=== PATIENT | male | born 1945 | race Caucasian/White ===

== ENCOUNTER 2018-08-04 08:59 | Inpatient (IN) | payer OTHER, MEDICARE ==
[2018-08-04] MEDS ORDERED: SODIUM CHLORIDE 0.9% 1,000 ML IV STA ×2 (09:44)
--- NOTE | 2018-08-04 09:47 | ED ---
Weakness HPI - General Chief complaint: Weakness Stated complaint: blood in urine Time Seen by Provider: 08/04/18 09:23 Source: patient, family, RN notes reviewed Mode of arrival: wheelchair Limitations: no limitations - History of Present Illness Initial comments: This is a 72-year-old male who is brought in by family for complaints of weakness and difficulty standing hematuria decreased oral intake. The patient currently is been fighting with hematuria for the past year he was noted to have about a 30 pound weight loss last couple weeks she's had decreased oral intake decreased fluid intake not eating extremely weak no overt cough no overt fevers chills sweats nausea vomiting or diarrhea. MD Complaint: generalized weakness - Related Data Home Medications Medication Instructions Recorded Confirmed Acetaminophen Tab [Tylenol Tab] 500 mg PO BID PRN 08/04/18 08/04/18 Atenolol/Chlorthalidone 1 tab PO DAILY 08/04/18 08/04/18 [Atenolol-Chlorthalidone 50-25] Finasteride [Proscar] 5 mg PO DAILY 08/04/18 08/04/18 Methocarbamol [Robaxin] 750 mg PO QID PRN 08/04/18 08/04/18 Naproxen 500 mg PO BID PRN 08/04/18 08/04/18 Oxybutynin Chloride [Ditropan] 5 mg PO BID 08/04/18 08/04/18 Tamsulosin [Flomax] 0.8 mg PO DAILY 08/04/18 08/04/18 Allergies Allergy/AdvReac Type Severity Reaction Status Date / Time No Known Allergies Allergy Verified 08/04/18 10:07 Review of Systems ROS Statement: Those systems with pertinent positive or pertinent negative responses have been documented in the HPI. ROS Other: All systems not noted in ROS Statement are negative. Past Medical History Past Medical History: Hypertension, Prostate Disorder History of Any Multi-Drug Resistant Organisms: None Reported Past Surgical History: Orthopedic Surgery Additional Past Surgical History / Comment(s): B knee replacement Past Psychological History: No Psychological Hx Reported Smoking Status: Former smoker Past Alcohol Use History: Daily Past Drug Use History: None Reported General Exam - General Exam Comments Initial Comments: This a well-developed asthenic appearing male Limitations: no limitations General appearance: alert, lethargic Head exam: Present: atraumatic, normocephalic, normal inspection Eye exam: Present: normal appearance, PERRL, EOMI. Absent: scleral icterus, conjunctival injection, periorbital swelling ENT exam: Present: mucous membranes dry Neck exam: Present: normal inspection. Absent: tenderness, meningismus, lymphadenopathy Respiratory exam: Present: decreased breath sounds. Absent: respiratory distress, wheezes, rales, rhonchi, stridor Cardiovascular Exam: Present: regular rate, normal rhythm, normal heart sounds. Absent: systolic murmur, diastolic murmur, rubs, gallop, clicks GI/Abdominal exam: Present: soft, tenderness (Tenderness palpation over the lower abdomen no guarding rebound), normal bowel sounds. Absent: distended, guarding, rebound, rigid Rectal exam: Present: deferred Extremities exam: Present: normal inspection, full ROM, normal capillary refill. Absent: tenderness, pedal edema, joint swelling, calf tenderness Back exam: Present: normal inspection Neurological exam: Present: alert, oriented X3, CN II-XII intact Psychiatric exam: Present: normal affect, normal mood Skin exam: Present: warm, dry, intact, normal color. Absent: rash Course Vital Signs 08/04/18 08/04/18 08/04/18 09:01 10:43 12:24 Temperature 97.9 F Pulse Rate 62 63 63 Respiratory 18 18 18 Rate Blood Pressure 148/77 154/111 129/82 O2 Sat by Pulse 96 96 95 Oximetry - Reevaluation(s) Reevaluation #1: 08/04/18 09:47 A Hallman catheter was placed there is evidence of hematuria. EKG Findings - EKG Results: EKG: interpreted by ERMD (EKG shows normal sinus rhythm a 61 MD interval 174 QRS 104 QT since QTC 432/434 nonspecific T-wave configuration) Medical Decision Making - Medical Decision Making I did discuss findings with the patient family members as well as with Dr. Moss who did come the emergency department see the patient patient will be admitted for inpatient treatment - Lab Data Result diagrams: 08/04/18 09:52 08/04/18 09:52 Lab Results 08/04/18 08/04/18 08/04/18 Range/Units 09:52 09:52 09:52 WBC 8.6 (3.8-10.6) k/uL RBC 3.11 L (4.30-5.90) m/uL Hgb 9.7 L (13.0-17.5) gm/dL Hct 28.5 L (39.0-53.0) % MCV 91.6 (80.0-100.0) fL MCH 31.2 (25.0-35.0) pg MCHC 34.0 (31.0-37.0) g/dL RDW 14.4 (11.5-15.5) % Plt Count 296 (150-450) k/uL Neutrophils % 74 % Lymphocytes % 20 % Monocytes % 5 % Eosinophils % 0 % Basophils % 0 % Neutrophils # 6.4 (1.3-7.7) k/uL Lymphocytes # 1.7 (1.0-4.8) k/uL Monocytes # 0.4 (0-1.0) k/uL Eosinophils # 0.0 (0-0.7) k/uL Basophils # 0.0 (0-0.2) k/uL Sodium 139 (137-145) mmol/L Potassium 3.4 L (3.5-5.1) mmol/L Chloride 95 L (98-107) mmol/L Carbon Dioxide 29 (22-30) mmol/L Anion Gap 15 mmol/L BUN 94 H (9-20) mg/dL Creatinine 2.45 H (0.66-1.25) mg/dL Est GFR (CKD-EPI)AfAm 30 (>60 ml/min/1.73 sqM) Est GFR (CKD-EPI)NonAf 26 (>60 ml/min/1.73 sqM) Glucose 113 H (74-99) mg/dL Plasma Lactic Acid Adrien (0.7-2.0) mmol/L Calcium (8.4-10.2) mg/dL Magnesium 1.9 (1.6-2.3) mg/dL Total Bilirubin 1.0 (0.2-1.3) mg/dL AST 35 (17-59) U/L ALT 21 (21-72) U/L Alkaline Phosphatase 106 (38-126) U/L Total Creatine Kinase 45 L (55-170) U/L CK-MB (CK-2) 0.6 (0.0-2.4) ng/mL CK-MB (CK-2) Rel Index 1.3 Troponin I 0.018 (0.000-0.034) ng/mL Total Protein 13.2 H (6.3-8.2) g/dL Albumin 4.1 (3.5-5.0) g/dL Amylase 74 (30-110) U/L Lipase 163 (23-300) U/L Urine Color Urine Appearance (Clear) Urine pH (5.0-8.0) Ur Specific [place] (1.001-1.035) Urine Protein (Negative) Urine Glucose (UA) (Negative) Urine Ketones (Negative) Urine Blood (Negative) Urine Nitrite (Negative) Urine Bilirubin (Negative) Urine Urobilinogen (<2.0) mg/dL Ur Leukocyte Esterase (Negative) Urine RBC (0-5) /hpf Urine WBC (0-5) /hpf Urine WBC Clumps (None) /hpf Urine Bacteria (None) /hpf Hyaline Casts (0-2) /lpf Urine Mucus (None) /hpf 08/04/18 08/04/18 Range/Units 09:52 09:52 WBC (3.8-10.6) k/uL RBC (4.30-5.90) m/uL Hgb (13.0-17.5) gm/dL Hct (39.0-53.0) % MCV (80.0-100.0) fL MCH (25.0-35.0) pg MCHC (31.0-37.0) g/dL RDW (11.5-15.5) % Plt Count (150-450) k/uL Neutrophils % % Lymphocytes % % Monocytes % % Eosinophils % % Basophils % % Neutrophils # (1.3-7.7) k/uL Lymphocytes # (1.0-4.8) k/uL Monocytes # (0-1.0) k/uL Eosinophils # (0-0.7) k/uL Basophils # (0-0.2) k/uL Sodium (137-145) mmol/L Potassium (3.5-5.1) mmol/L Chloride (98-107) mmol/L Carbon Dioxide (22-30) mmol/L Anion Gap mmol/L BUN (9-20) mg/dL Creatinine (0.66-1.25) mg/dL Est GFR (CKD-EPI)AfAm (>60 ml/min/1.73 sqM) Est GFR (CKD-EPI)NonAf (>60 ml/min/1.73 sqM) Glucose (74-99) mg/dL Plasma Lactic Acid Adrien 1.5 (0.7-2.0) mmol/L Calcium (8.4-10.2) mg/dL Magnesium (1.6-2.3) mg/dL Total Bilirubin (0.2-1.3) mg/dL AST (17-59) U/L ALT (21-72) U/L Alkaline Phosphatase (38-126) U/L Total Creatine Kinase (55-170) U/L CK-MB (CK-2) (0.0-2.4) ng/mL CK-MB (CK-2) Rel Index Troponin I (0.000-0.034) ng/mL Total Protein (6.3-8.2) g/dL Albumin (3.5-5.0) g/dL Amylase (30-110) U/L Lipase (23-300) U/L Urine Color Red Urine Appearance Turbid (Clear) Urine pH 5.5 (5.0-8.0) Ur Specific [place] 1.017 (1.001-1.035) Urine Protein 2+ H (Negative) Urine Glucose (UA) Negative (Negative) Urine Ketones Negative (Negative) Urine Blood Large H (Negative) Urine Nitrite Negative (Negative) Urine Bilirubin Negative (Negative) Urine Urobilinogen <2.0 (<2.0) mg/dL Ur Leukocyte Esterase Large H (Negative) Urine RBC >182 H (0-5) /hpf Urine WBC >182 H (0-5) /hpf Urine WBC Clumps Many H (None) /hpf Urine Bacteria Rare H (None) /hpf Hyaline Casts 77 H (0-2) /lpf Urine Mucus Few H (None) /hpf - Radiology Data Radiology results: report reviewed (I did review the imaging and report no acute findings.), image reviewed Disposition Clinical Impression: Urinary tract infection, Dehydration, Renal insufficiency syndrome, Anemia Disposition: ADMITTED IP TO THIS HOSP Condition: Stable Referrals: [facility],Clinic [Primary Care Provider] - 1-2 days
[2018-08-04 10:31] LABS: Basophils % (A) 0 %; Eosinophils % (A) 0 %; HCT 28.5 % (39.0-53.0); HGB 9.7 gm/dL (13.0-17.5); Lymphocytes # (A) 1.7 k/uL (1.0-4.8); Lymphocytes % (A) 20 %; MCH 31.2 pg (25.0-35.0); MCV 91.6 fL (80.0-100.0); Monocytes # (A) 0.4 k/uL (0-1.0); Monocytes % (A) 5 %; Neutrophils # (A) 6.4 k/uL (1.3-7.7); Neutrophils % (A) 74 %; Platelet Count 296 k/uL (150-450); RBC 3.11 m/uL (4.30-5.90); RDW 14.4 % (11.5-15.5); WBC 8.6 k/uL (3.8-10.6)
[2018-08-04 10:44] LABS: Appearance,Urine Turbid (Clear); Bacteria,Urine Rare /hpf; Bilirubin,Urine Negative (Negative); Blood,Urine Large (Negative); Color,Urine Red; Glucose,Urine (UA) Negative (Negative); Hyaline Casts,Urine 77 /lpf (0-2); Ketones,Urine Negative (Negative); Leukocyte Esterase,Urine Large (Negative); Mucus,Urine Few /hpf; Nitrite,Urine Negative (Negative); PH, Urine 5.5 (5.0-8.0); Protein,Urine 2+ (Negative); RBC,Urine >182 /hpf (0-5); Urobilinogen,Urine <2.0 mg/dL (<2.0); WBC,Urine >182 /hpf (0-5)
[2018-08-04 10:53] LABS: Albumin 4.1 g/dL (3.5-5.0); Magnesium 1.9 mg/dL (1.6-2.3); Potassium 3.4 mmol/L (3.5-5.1)
[2018-08-04 10:54] LABS: Specific Gravity,Urine 1.017 (1.001-1.035)
--- NOTE | 2018-08-04 11:01 | XR ---
EXAMINATION TYPE: XR chest 2V DATE OF EXAM: 08/04/2018 COMPARISON: 08/20/2013 INDICATION: Cough TECHNIQUE: Frontal and lateral views of the chest are obtained. FINDINGS: The heart size is normal. The pulmonary vasculature is normal. The lungs are clear. IMPRESSION: 1. No acute pulmonary process.
--- NOTE | 2018-08-04 11:02 | XR ---
EXAMINATION TYPE: XR KUB DATE OF EXAM: 08/04/2018 COMPARISON: None INDICATION: Not eating or drinking TECHNIQUE: Single view abdomen frontal projection supine view FINDINGS: There is a normal bowel gas pattern. Some nonspecific small bowel gas is in the right midabdomen. Psoas margins are normal. No organomegaly is present. IMPRESSION: 1. Nonspecific abdomen.
[2018-08-04 11:14] LABS: Total Protein 13.2 g/dL (6.3-8.2)
[2018-08-04 11:20] LABS: Creatine Kinase MB 0.6 ng/mL (0.0-2.4); Troponin I 0.018 ng/mL (0.000-0.034)
[2018-08-04] MEDS ORDERED: NALOXONE 0.4 MG/ML 1 ML VIAL IV PRN (13:52)
[2018-08-04] MEDS ORDERED: METHOCARBAMOL 750 MG TAB PO PRN (13:53)
[2018-08-04] MEDS ORDERED: NAPROXEN 250 MG TAB PO PRN (13:53)
--- NOTE | 2018-08-04 14:50 | P.HPIM ---
History of Present Illness 72-year-old pleasant gentleman came in with complaints of fever weakness has been going on for last 2 days along with hematuria patient does have significant prostate problems does use straight catheterization he is unable to do it lately follows up with urology as an outpatient. Patient has been quite weak and able to ambulate found to have renal failure with creatinine of 2.45 do not have his baseline creatinine patient is on some nephrotoxic medications including naproxen which will be held patient will be started on IV fluids, patient was also complaining of pain in the right groin area right suprapubic area and across the bilateral lower abdomen does not have any posterior vertebral angle tenderness. We will obtain ultrasound of the kidney urinary bladder. We will Allsop in urine random sodium urine random creatinine and urine eosinophils, holding off on naproxen and chlorthalidone. Patient was also having hematuria Review of Systems REVIEW OF SYSTEMS: CONSTITUTIONAL: As mentioned in HPI HEENT: No recent visual problems or hearing problems. Denied any sore throat. CARDIOVASCULAR: No chest pain, orthopnea, PND, no palpitations, no syncope. PULMONARY: No shortness of breath, no cough, no hemoptysis. GASTROINTESTINAL: No diarrhea, no vomiting, . Normoactive bowel sounds. NEUROLOGICAL: No headaches, no weakness, no numbness. HEMATOLOGICAL: Denies any bleeding or petechiae. GENITOURINARY: As mentioned in HPI. MUSCULOSKELETAL/RHEUMATOLOGICAL: Denies any joint pain, swelling, or any muscle pain. ENDOCRINE: Denies any polyuria or polydipsia. The rest of the 14-point review of systems is negative. Past Medical History Past Medical History: Hypertension, Prostate Disorder Additional Past Medical History / Comment(s): Hematuria, UTI, BPH, chronic back and bilateral leg pain History of Any Multi-Drug Resistant Organisms: None Reported Past Surgical History: Orthopedic Surgery Additional Past Surgical History / Comment(s): Bilateral knee replacements, colonoscopy Past Anesthesia/Blood Transfusion Reactions: No Reported Reaction Past Psychological History: No Psychological Hx Reported Additional Psychological History / Comment(s): Pt resides with his spouse. He uses a cane and lately a walker to ambulate. He drives. Smoking Status: Former smoker Past Alcohol Use History: Daily Additional Past Alcohol Use History / Comment(s): Pt started smoking in 1965 and quit in 2013. He states he drinks approximately 4 shots of whiskey in a mixer per day. He states he last drank 3-4 days ago. Past Drug Use History: None Reported - Past Family History Father Family Medical History: Respiratory Disorder Additional Family Medical History / Comment(s): Pt states his father smoked and had home oxygen but does not know exact lung disease. He states his father at the age of 69yrs. Mother Family Medical History: Cancer Additional Family Medical History / Comment(s): Mother of pancreatic cancer at the age of 72 yrs. She was a non-drinker. Medications and Allergies Home Medications Medication Instructions Recorded Confirmed Type Acetaminophen Tab [Tylenol Tab] 500 mg PO BID PRN 08/04/18 08/04/18 History Atenolol/Chlorthalidone 1 tab PO DAILY 08/04/18 08/04/18 History [Atenolol-Chlorthalidone 50-25] Finasteride [Proscar] 5 mg PO DAILY 08/04/18 08/04/18 History Methocarbamol [Robaxin] 750 mg PO QID PRN 08/04/18 08/04/18 History Naproxen 500 mg PO BID PRN 08/04/18 08/04/18 History Oxybutynin Chloride [Ditropan] 5 mg PO BID 08/04/18 08/04/18 History Tamsulosin [Flomax] 0.8 mg PO DAILY 08/04/18 08/04/18 History Allergies Allergy/AdvReac Type Severity Reaction Status Date / Time No Known Allergies Allergy Verified 08/04/18 10:07 Physical Exam Vitals: Vital Signs Temp Pulse Resp BP Pulse Ox 08/04/18 12:24 63 18 129/82 95 08/04/18 10:43 63 18 154/111 96 08/04/18 09:01 97.9 F 62 18 148/77 96 Intake and Output 08/03/18 08/04/18 08/04/18 22:59 06:59 14:59 Other: Voiding Method Indwelling Catheter Weight 79.379 kg Results CBC & Chem 7: 08/04/18 09:52 08/04/18 09:52 Labs: Abnormal Lab Results - Last 24 Hours (Table) 08/04/18 08/04/18 08/04/18 Range/Units 09:52 09:52 09:52 RBC 3.11 L (4.30-5.90) m/uL Hgb 9.7 L (13.0-17.5) gm/dL Hct 28.5 L (39.0-53.0) % Potassium 3.4 L (3.5-5.1) mmol/L Chloride 95 L (98-107) mmol/L BUN 94 H (9-20) mg/dL Creatinine 2.45 H (0.66-1.25) mg/dL Glucose 113 H (74-99) mg/dL Total Creatine Kinase 45 L (55-170) U/L Total Protein 13.2 H (6.3-8.2) g/dL Urine Protein (Negative) Urine Blood (Negative) Ur Leukocyte Esterase (Negative) Urine RBC (0-5) /hpf Urine WBC (0-5) /hpf Urine WBC Clumps (None) /hpf Urine Bacteria (None) /hpf Hyaline Casts (0-2) /lpf Urine Mucus (None) /hpf 08/04/18 Range/Units 09:52 RBC (4.30-5.90) m/uL Hgb (13.0-17.5) gm/dL Hct (39.0-53.0) % Potassium (3.5-5.1) mmol/L Chloride (98-107) mmol/L BUN (9-20) mg/dL Creatinine (0.66-1.25) mg/dL Glucose (74-99) mg/dL Total Creatine Kinase (55-170) U/L Total Protein (6.3-8.2) g/dL Urine Protein 2+ H (Negative) Urine Blood Large H (Negative) Ur Leukocyte Esterase Large H (Negative) Urine RBC >182 H (0-5) /hpf Urine WBC >182 H (0-5) /hpf Urine WBC Clumps Many H (None) /hpf Urine Bacteria Rare H (None) /hpf Hyaline Casts 77 H (0-2) /lpf Urine Mucus Few H (None) /hpf Thrombosis Risk Factor Assmnt - Choose All That Apply Any of the Below Risk Factors Present?: Yes Other Risk Factors: Yes Each Risk Factor Represents 2 Points: Age 61-74 years Other congenital or acquired thrombophilia - If yes, enter type in comment: No Thrombosis Risk Factor Assessment Total Risk Factor Score: 2 Thrombosis Risk Factor Assessment Level: Low Risk Assessment and Plan Plan: Possible urinary tract infection, a cystitis: Patient was started on Rocephin which will be continued IV fluids will be continued. Urine cultures will be obtained. UA significant abdominal with highly elevated white blood cell count leukocyte esterase and nitrate positive. -Hematuria: Probably secondary to cystitis -Possible acute renal failure: Naproxen will be discontinued, diuretic therapy will be discontinued. Kidney ultrasound will be obtained to rule out any obstructive uropathy. Patient had a Hallman catheter that was placed. Acute renal failure can be from acute tubular necrosis nonoliguric along with prerenal azotemia. Order urine random sodium urine random creatinine urine eosinophils Repeats basic metabolic profile tomorrow. -Hypokalemia potassium will be supplemented -Proteinuria follow-up as an outpatient -Benign prostatic hypertrophy
--- NOTE | 2018-08-04 15:39 | US ---
EXAMINATION TYPE: US kidneys/renal and bladder DATE OF EXAM: 08/04/2018 COMPARISON: NONE CLINICAL HISTORY: YARI. EXAM MEASUREMENTS: Right Kidney: 12.5 x 6.4 x 8.2 cm Left Kidney: 11.9 x 6.7 x 7.6 cm Right Kidney: moderate amount of hydronephrosis Left Kidney: No hydronephrosis or masses seen Bladder: reyes catheter Bilateral Jets seen: no Urinary bladder is decompressed the catheter. Wall thickening cannot be excluded. IMPRESSION: Moderate right hydronephrosis.
[2018-08-04] MEDS: SODIUM CHLORIDE 0.9% 1,000 ML IV SCH (15:41)
[2018-08-04] MEDS: OXYBUTYNIN CHLORIDE 5 MG TAB PO SCH (21:33)
[2018-08-05] MEDS: SODIUM CHLORIDE 0.9% 1,000 ML IV SCH ×3 (04:00→21:55)
[2018-08-05] MEDS: ATENOLOL 50 MG TAB PO SCH (08:11)
[2018-08-05] MEDS: TAMSULOSIN 0.4 MG CAP.ER.24H PO SCH (08:11)
[2018-08-05] MEDS: FINASTERIDE 5 MG TAB PO SCH (08:11)
[2018-08-05] MEDS: OXYBUTYNIN CHLORIDE 5 MG TAB PO SCH ×2 (08:12→20:12)
[2018-08-05] MEDS ORDERED: CHLORTHALIDONE 25 MG TAB PO SCH (09:00)
[2018-08-05 09:52] LABS: HCT 24.7 % (39.0-53.0); HGB 8.5 gm/dL (13.0-17.5); MCH 31.4 pg (25.0-35.0); MCHC 34.2 g/dL (31.0-37.0); MCV 91.8 fL (80.0-100.0); Mean Platelet Volume 7.9; Platelet Count 243 k/uL (150-450); RBC 2.69 m/uL (4.30-5.90); RDW 14.4 % (11.5-15.5); WBC 8.1 k/uL (3.8-10.6)
[2018-08-05 10:33] LABS: Calcium 13.9 mg/dL (8.4-10.2); Potassium 2.6 mmol/L (3.5-5.1)
[2018-08-05] MEDS ORDERED: Potassium Replacement Protocol 1 EACH MISC MISCELLANE PRN (11:20)
[2018-08-05] MEDS ORDERED: Magnesium Replacement Protocol 1 EACH MISC MISCELLANE PRN (11:21)
[2018-08-05] MEDS ORDERED: POTASSIUM CHLORIDE 20 MEQ in WATER FOR INJECTION 1 100ML.BAG IVPB STA (11:33)
[2018-08-05 13:06] VITALS: BMI 25.1
--- NOTE | 2018-08-05 13:43 | P.PN ---
Subjective Progress Note Date: 08/05/18 Progress note being dictated for Dr. Moss Interval history:72-year-old pleasant gentleman came in with complaints of fever weakness has been going on for last 2 days along with hematuria patient does have significant prostate problems does use straight catheterization he is unable to do it lately follows up with urology as an outpatient. Patient has been quite weak and able to ambulate found to have renal failure with creatinine of 2.45 do not have his baseline creatinine patient is on some nephrotoxic medications including naproxen which will be held patient will be started on IV fluids, patient was also complaining of pain in the right groin area right suprapubic area and across the bilateral lower abdomen does not have any posterior vertebral angle tenderness. We will obtain ultrasound of the kidney urinary bladder. We will Allsop in urine random sodium urine random creatinine and urine eosinophils, holding off on naproxen and chlorthalidone. Patient was also having hematuria 08/05/2018 poor appetite, consumed 10% of breakfast, creatinine 1.91. Renal ultrasound reporting moderate right hydronephrosis, possible wall thickening Hyperal hypokalemic, potassium 2.6, receiving supplements. Evaluated by PT/OT. Limited ambulation with walker. Post ambulation complained of significant exertion and bilateral hip pain. Elevated calcium, 13.9. states patient has lost 30 pounds in 3 weeks. Afebrile, normal WBC. Objective - Vital Signs Vital signs: Vital Signs Temp 98.2 F 08/05/18 06:02 Pulse 66 08/05/18 06:02 Resp 17 08/05/18 06:02 BP 135/69 08/05/18 06:02 Pulse Ox 94 L 08/05/18 06:02 Intake & Output 08/04/18 08/05/18 08/05/18 18:59 06:59 18:59 Intake Total 100 Output Total 900 850 Balance -900 -850 100 Weight 79.379 kg 79.379 kg Intake: Oral 100 Output: Urine 900 850 Other: Voiding Method Indwelling Catheter Indwelling Catheter - Exam PHYSICAL EXAM: VITAL SIGNS: As above GENERAL: Lying in bed, weak and tired appearing, no acute distress HEENT: Conjunctivae normal. eyes normal. Oral mucosa dry NECK: No JVD. No thyroid enlargement. No LNs CARDIOVASCULAR: S1, S2 muffled. No murmur RESPIRATION: Breath sounds diminished in the bases. No rhonchi or crackles. ABDOMEN: Soft, nontender . No guarding. no masses palpable. Bowel sounds heard. LEGS: No edema. no swelling PSYCHIATRY: Alert and oriented -3, mood and affect normal. NERVOUS SYSTEM: Cranial N 2-12 grossly normal. Moves all 4 limbs. Diffuse weakness No focal deficits. Joints: No active swelling. No inflammation. . - Labs CBC & Chem 7: 08/05/18 09:18 08/05/18 09:18 Labs: Abnormal Lab Results - Last 24 Hours (Table) 08/05/18 08/05/18 Range/Units :18 09:18 RBC 2.69 L (4.30-5.90) m/uL Hgb 8.5 L (13.0-17.5) gm/dL Hct 24.7 L (39.0-53.0) % Potassium 2.6 L* (3.5-5.1) mmol/L BUN 62 H (9-20) mg/dL Creatinine 1.91 H (0.66-1.25) mg/dL Glucose 113 H (74-99) mg/dL Calcium 13.9 H* (8.4-10.2) mg/dL Microbiology - Last 24 Hours (Table) 08/04/18 09:52 Blood Culture - Preliminary Blood No Growth after 24 hours Assessment and Plan Assessment: Possible urinary tract infection, a cystitis: Urine culture pendning, UA significant abdominal with highly elevated white blood cell count leukocyte esterase and nitrate positive. -Hematuria: Probably secondary to cystitis -Possible acute renal failure: Naproxen will be discontinued, diuretics discontinued. Acute renal failure can be from acute tubular necrosis nonoliguric along with prerenal azotemia. -Hypokalemia potassium will be supplemented -Proteinuria follow-up as an outpatient -Benign prostatic hypertrophy -Hypercalcemia, workup in progress, PTH and vitamin D5 levels ordered. Possible malignancy given significant weight loss of 30 pounds in 3 weeks. -Moderate right hydronephrosis -Bilateral hip pain, workup in progress. Plan: Continue current medication regime ,monitoring and symptomatic treatment. Maintain IV antibiotics. Potassium supplementation in progress with repeat electrolyte check at 1600. Given hypercalcemia, PTH and vitamin D 5 levels ordered, IV fluids increased. Evaluated by physical therapy with subacute rehab recommended at discharge. Urology consult in place with recommendations pending. Complains of bilateral hip pain, x-ray ordered. Close monitoring of electrolytes, renal function with repeat labs ordered for a.m. prognosis guarded given multiple complex medical issues. The impression and plan of care has been dictated as directed. : I performed a history and examination of this patient, discussed the same with the dictator. I agree with the dictator's note ,documented as a scribe. Any additional findings or plans will be noted.
[2018-08-05] MEDS: POTASSIUM CHLORIDE 20 MEQ in WATER FOR INJECTION 1 100ML.BAG IVPB SCH ×2 (13:52→17:13)
[2018-08-05] MEDS: ACETAMINOPHEN TAB 325 MG TAB PO PRN (13:52)
[2018-08-05] MEDS: CALCITONIN INJ 200 UNIT/ML (MDV) VIAL SQ SCH (15:32)
--- NOTE | 2018-08-05 16:04 | XR ---
EXAMINATION TYPE: XR Hip Bilateral and AP pelvis DATE OF EXAM: 08/05/2018 COMPARISON: NONE HISTORY: Pain TECHNIQUE: A single AP view of the pelvis is obtained. Two views of the bilateral hip are obtained. FINDINGS: There is no acute fracture/dislocation evident in the pelvis. There is arthropathy of the hip joints bilaterally with vascular calcifications in the pelvis and degenerative changes spine. There are lucent lesions involving both femur and pelvic bones. Correlate for history of malignancy o r multiple myeloma. No acute fracture or dislocation. IMPRESSION: 1. There are multiple lucent lesions the visualized osseous structures. Correlate for history of mult iple myeloma or metastases. 2. Bilateral hip arthropathy.
--- NOTE | 2018-08-05 20:27 | P.GSCN ---
History of Present Illness Consult date: 08/05/18 Reason for Consult: Cystitis History of present illness: The patient is a 72-year-old male admitted on 08/04 through the emergency room for evaluation of increasing weakness and intermittent gross hematuria. At the time of his admission his BUN was 94 and his creatinine was 2.45. A catheter was inserted but unfortunately the amount of urine which drained was never recorded. He was presumed to have a urinary tract infection and was started on ceftriaxone. His BUN and creatinine has fallen to 62/1.91 today. His urine culture is no growth. The patient was noted to have a calcium of 13.9. His total protein was 13.2 and his PTH is 4.5. KUB and films of his pelvis and proximal femurs show multiple lytic lesions. Renal ultrasound on 08/04 showed moderate right hydronephrosis. The patient has a history of intermittent gross hematuria which dates back at least 1-1/2 years. According to his he was evaluated by a urologist in [place] 1 year ago. She thinks cystoscopy was performed and the patient had evidence of incomplete bladder emptying. He was given catheters for intermittent catheterization but apparently never did this on a regular basis and tried them again recently but was unable to pass the catheter into his bladder. The patient's says that his urine flow is usually just a trickle and he usually voids multiple times every hour during the day and at least every hour at night. He has periodic urge incontinence. She describes him being treated for urinary tract infections earlier in the year but is unclear if urine cultures were ever done. The patient has been treated with finasteride 5 mg daily and oxybutynin 5 mg twice a day. He could not recall if he had had previous imaging of his kidneys but I presume that when he was seen by a urologist one year ago due to hematuria he probably had either a renal ultrasound or CT scan of the abdomen. He Says he has been seen at the [facility] clinic on a regular basis. Review of Systems - Constitutional Reports fatigue, Reports weakness, Denies fever - Cardiovascular Denies chest pain, Denies shortness of breath - Respiratory Denies wheezing - Gastrointestinal Denies abdominal pain, Denies constipation - Genitourinary Reports as per HPI, Reports discharge - Musculoskeletal Reports muscle weakness Past Medical History Past Medical History: Hypertension, Prostate Disorder Additional Past Medical History / Comment(s): Hematuria, UTI, BPH, chronic back and bilateral leg pain History of Any Multi-Drug Resistant Organisms: None Reported Past Surgical History: Orthopedic Surgery Additional Past Surgical History / Comment(s): Bilateral knee replacements, colonoscopy Past Anesthesia/Blood Transfusion Reactions: No Reported Reaction Past Psychological History: No Psychological Hx Reported Additional Psychological History / Comment(s): Pt resides with his spouse. He uses a cane and lately a walker to ambulate. He drives. Smoking Status: Former smoker Past Alcohol Use History: Daily Additional Past Alcohol Use History / Comment(s): Pt started smoking in 1965 and quit in 2013. He states he drinks approximately 4 shots of whiskey in a mixer per day. He states he last drank 3-4 days ago. Past Drug Use History: None Reported - Past Family History Father Family Medical History: Respiratory Disorder Additional Family Medical History / Comment(s): Pt states his father smoked and had home oxygen but does not know exact lung disease. He states his father at the age of 69yrs. Mother Family Medical History: Cancer Additional Family Medical History / Comment(s): Mother of pancreatic cancer at the age of 72 yrs. She was a non-drinker. Medications and Allergies Home Medications Medication Instructions Recorded Confirmed Type Acetaminophen Tab [Tylenol Tab] 500 mg PO BID PRN 08/04/18 08/04/18 History Atenolol/Chlorthalidone 1 tab PO DAILY 08/04/18 08/04/18 History [Atenolol-Chlorthalidone 50-25] Finasteride [Proscar] 5 mg PO DAILY 08/04/18 08/04/18 History Methocarbamol [Robaxin] 750 mg PO QID PRN 08/04/18 08/04/18 History Naproxen 500 mg PO BID PRN 08/04/18 08/04/18 History Oxybutynin Chloride [Ditropan] 5 mg PO BID 08/04/18 08/04/18 History Tamsulosin [Flomax] 0.8 mg PO DAILY 08/04/18 08/04/18 History Allergies Allergy/AdvReac Type Severity Reaction Status Date / Time No Known Allergies Allergy Verified 08/04/18 10:07 Surgical - Exam Vital Signs Temp Pulse Resp BP Pulse Ox 97.9 F 62 18 148/77 96 08/04/18 09:01 08/04/18 09:01 08/04/18 09:01 08/04/18 09:01 08/04/18 09:01 - General well developed, chronically ill - Neck no masses, no lymphadectomy - Respiratory normal respiratory effort - Abdomen Abdomen: soft, no organomegaly - Genitourinary normal penis with no external lesions, testicles non-tender, other (Urine draining from the catheter is clear) Results - Labs 08/05/18 09:18 08/05/18 16:48 Abnormal Lab Results - Last 24 Hours (Table) 08/05/18 08/05/18 08/05/18 Range/Units : 09: 09:18 RBC 2.69 L (4.30-5.90) m/uL Hgb 8.5 L (13.0-17.5) gm/dL Hct 24.7 L (39.0-53.0) % Potassium 2.6 L* (3.5-5.1) mmol/L BUN 62 H (9-20) mg/dL Creatinine 1.91 H (0.66-1.25) mg/dL Glucose 113 H (74-99) mg/dL Calcium 13.9 H* (8.4-10.2) mg/dL Vitamin D 25-Hydroxy (30.0-100.0) ng/mL PTH Intact 4.5 L (14.0-72.0) pg/mL 08/05/18 08/05/18 Range/Units :18 16:48 RBC (4.30-5.90) m/uL Hgb (13.0-17.5) gm/dL Hct (39.0-53.0) % Potassium 3.3 L (3.5-5.1) mmol/L BUN (9-20) mg/dL Creatinine (0.66-1.25) mg/dL Glucose (74-99) mg/dL Calcium (8.4-10.2) mg/dL Vitamin D 25-Hydroxy 16.2 L (30.0-100.0) ng/mL PTH Intact (14.0-72.0) pg/mL Microbiology - Last 24 Hours (Table) 08/05/18 14:00 Urine Culture - Preliminary Urine,Clean Catch 08/04/18 09:52 Blood Culture - Preliminary Blood No Growth after 24 hours Diabetes panel 08/05/18 08/05/18 Range/Units 09:18 16:48 Sodium 138 (137-145) mmol/L Potassium 2.6 L* 3.3 L (3.5-5.1) mmol/L Chloride 98 (98-107) mmol/L Carbon Dioxide 28 (22-30) mmol/L BUN 62 H (9-20) mg/dL Creatinine 1.91 H (0.66-1.25) mg/dL Glucose 113 H (74-99) mg/dL Calcium 13.9 H* (8.4-10.2) mg/dL Calcium panel 08/05/18 Range/Units 09:18 Calcium 13.9 H* (8.4-10.2) mg/dL Pituitary panel 08/05/18 08/05/18 Range/Units 09: 16:48 Sodium 138 (137-145) mmol/L Potassium 2.6 L* 3.3 L (3.5-5.1) mmol/L Chloride 98 (98-107) mmol/L Carbon Dioxide 28 (22-30) mmol/L BUN 62 H (9-20) mg/dL Creatinine 1.91 H (0.66-1.25) mg/dL Glucose 113 H (74-99) mg/dL Calcium 13.9 H* (8.4-10.2) mg/dL Adrenal panel 08/05/18 08/05/18 Range/Units 09:18 16:48 Sodium 138 (137-145) mmol/L Potassium 2.6 L* 3.3 L (3.5-5.1) mmol/L Chloride 98 (98-107) mmol/L Carbon Dioxide 28 (22-30) mmol/L BUN 62 H (9-20) mg/dL Creatinine 1.91 H (0.66-1.25) mg/dL Glucose 113 H (74-99) mg/dL Calcium 13.9 H* (8.4-10.2) mg/dL Assessment and Plan Assessment: The patient's history is consistent with incomplete bladder emptying secondary to prostatic enlargement which dates back at least 1 year. It is likely that the patient has been in urinary retention recently which caused the right hydronephrosis and his elevated BUN and creatinine. His BUN and creatinine have fallen with catheter drainage and I would suggest leaving the catheter in for a longer period. The patient's hematuria is probably on the basis of underlying BPH as presumably he underwent cystoscopy and imaging of his kidneys one year ago. His urine culture showing no growth and in view of this his antibiotics will be discontinued. I spoke with the patient's and she will try to obtain records from the urologist but had seen him previously. His elevated calcium, suppressed PTH and elevated total protein coupled with the lytic lesions noted on KUB and films of the femurs and pelvis suggest multiple myeloma. Dr. Goncalves will be seeing the patient for further evaluation of this. (1) Urinary retention with incomplete bladder emptying Current Visit: Yes Status: Acute Code(s): R33.9 - RETENTION OF URINE, UNSPECIFIED SNOMED Code(s): 964829404
[2018-08-06] MEDS ORDERED: Potassium Replacement Protocol 1 EACH MISC MISCELLANE PRN (00:01)
[2018-08-06] MEDS: POTASSIUM CHLORIDE ER 20 MEQ TAB.ER PO SCH ×6 (01:01→21:56)
[2018-08-06] MEDS: SODIUM CHLORIDE 0.9% 1,000 ML IV SCH ×3 (08:14→21:56)
[2018-08-06] MEDS: FINASTERIDE 5 MG TAB PO SCH (08:16)
[2018-08-06] MEDS: TAMSULOSIN 0.4 MG CAP.ER.24H PO SCH (08:16)
[2018-08-06] MEDS: OXYBUTYNIN CHLORIDE 5 MG TAB PO SCH (08:16)
[2018-08-06] MEDS: ATENOLOL 50 MG TAB PO SCH (08:16)
[2018-08-06] MEDS: CALCITONIN INJ 200 UNIT/ML (MDV) VIAL SQ SCH (08:53)
[2018-08-06] MEDS: ACETAMINOPHEN TAB 325 MG TAB PO PRN (08:56)
--- NOTE | 2018-08-06 09:57 | P.CONS ---
History of Present Illness - Reason for Consult Consult date: 08/06/18 bone lucency, anemia Requesting physician: Flakita June - Chief Complaint weakness, hematuria - History of Present Illness Mr. Quesada is a very pleasant male admitted with hematuria and progressive weakness. Pt states a history of "prostate problems" withhis PSA being followed by [facility], his last labs were drawn last month and he was told everything was good. Pt denies a personal Hx of cancer, blood problems, he is positive for 30 lb wt. loss in the last few months, the week he has elt "foggy" but denies confusion, has been moving slower and it has been taking him longer to to do his normal activities, new pain in the right side /hips and the right leg is weak, denies fevers, sweats, falls, difficulty swallowing, nausea, chest pain, cough, QIAN, abd pain or bloating, acute changes in bowel habits, he states the hematuria has stopped since the catheter was inserted. Review of Systems 14 point ROS as stated in HPI Past Medical History Past Medical History: Hypertension, Prostate Disorder Additional Past Medical History / Comment(s): Hematuria, UTI, BPH, chronic back and bilateral leg pain History of Any Multi-Drug Resistant Organisms: None Reported Past Surgical History: Orthopedic Surgery Additional Past Surgical History / Comment(s): Bilateral knee replacements, colonoscopy Past Anesthesia/Blood Transfusion Reactions: No Reported Reaction Past Psychological History: No Psychological Hx Reported Additional Psychological History / Comment(s): Pt resides with his spouse. He uses a cane and lately a walker to ambulate. He drives. Smoking Status: Former smoker Past Alcohol Use History: Daily Additional Past Alcohol Use History / Comment(s): Pt started smoking in 1965 and quit in 2013. He states he drinks approximately 4 shots of whiskey in a mixer per day. He states he last drank 3-4 days ago. Past Drug Use History: None Reported - Past Family History Father Family Medical History: Respiratory Disorder Additional Family Medical History / Comment(s): Pt states his father smoked and had home oxygen but does not know exact lung disease. He states his father at the age of 69yrs. Mother Family Medical History: Cancer Additional Family Medical History / Comment(s): Mother of pancreatic cancer at the age of 72 yrs. She was a non-drinker. Medications and Allergies Home Medications Medication Instructions Recorded Confirmed Type Acetaminophen Tab [Tylenol Tab] 500 mg PO BID PRN 08/04/18 08/04/18 History Atenolol/Chlorthalidone 1 tab PO DAILY 08/04/18 08/04/18 History [Atenolol-Chlorthalidone 50-25] Finasteride [Proscar] 5 mg PO DAILY 08/04/18 08/04/18 History Methocarbamol [Robaxin] 750 mg PO QID PRN 08/04/18 08/04/18 History Naproxen 500 mg PO BID PRN 08/04/18 08/04/18 History Oxybutynin Chloride [Ditropan] 5 mg PO BID 08/04/18 08/04/18 History Tamsulosin [Flomax] 0.8 mg PO DAILY 08/04/18 08/04/18 History Allergies Allergy/AdvReac Type Severity Reaction Status Date / Time No Known Allergies Allergy Verified 08/04/18 10:07 Physical Exam Vitals: Vital Signs Temp Pulse Resp BP Pulse Ox 08/06/18 05:56 98.2 F 64 17 125/67 96 08/05/18 23:00 98.1 F 63 17 141/68 94 L 08/05/18 16:28 60 16 08/05/18 14:02 98.6 F 60 16 129/72 93 L Intake and Output 08/05/18 08/06/18 08/06/18 22:59 06:59 14:59 Intake Total 60 Output Total 1300 650 Balance -1240 -650 Intake: Oral 60 Output: Urine 1300 650 Other: Voiding Method Indwelling Catheter Weight 79.379 kg - Constitutional General appearance: average body habitus, cooperative, no acute distress - EENT Eyes: anicteric sclerae, poor dentition ENT: normal oropharynx - Neck Neck: no lymphadenopathy - Respiratory Respiratory: bilateral: CTA - Cardiovascular Rhythm: regular Heart sounds: normal: S1, S2 leg Peripheral Edema: bilateral: None - Gastrointestinal General gastrointestinal: no absent bowel sounds, no decreased bowel sounds, no distended, no hepatomegaly, no hyperactive bowel sounds, normal bowel sounds, no organomegaly, no rigid, no scaphoid, soft, no splenomegaly, no tenderness, no umbilical hernia, no ventral hernia - Integumentary Integumentary: decreased turgor - Neurologic Neurologic: CNII-XII intact Results CBC & Chem 7: 08/05/18 09:18 08/06/18 11:28 Labs: Abnormal Lab Results - Last 24 Hours (Table) 08/05/18 08/05/18 08/05/18 Range/Units 18 09:18 09:18 RBC 2.69 L (4.30-5.90) m/uL Hgb 8.5 L (13.0-17.5) gm/dL Hct 24.7 L (39.0-53.0) % Potassium 2.6 L* (3.5-5.1) mmol/L BUN 62 H (9-20) mg/dL Creatinine 1.91 H (0.66-1.25) mg/dL Glucose 113 H (74-99) mg/dL Calcium 13.9 H* (8.4-10.2) mg/dL Vitamin D 25-Hydroxy (30.0-100.0) ng/mL PTH Intact 4.5 L (14.0-72.0) pg/mL 08/05/18 08/05/18 08/05/18 Range/Units :18 16:48 23:22 RBC (4.30-5.90) m/uL Hgb (13.0-17.5) gm/dL Hct (39.0-53.0) % Potassium 3.3 L 3.1 L (3.5-5.1) mmol/L BUN (9-20) mg/dL Creatinine (0.66-1.25) mg/dL Glucose (74-99) mg/dL Calcium (8.4-10.2) mg/dL Vitamin D 25-Hydroxy 16.2 L (30.0-100.0) ng/mL PTH Intact (14.0-72.0) pg/mL Microbiology - Last 24 Hours (Table) 08/05/18 14:00 Urine Culture - Preliminary Urine,Clean Catch 08/04/18 09:52 Blood Culture - Preliminary Blood No Growth after 24 hours Comments: x ray reports reviewed Assessment and Plan (1) Acute renal failure Current Visit: Yes Status: Acute Priority: High Code(s): N17.9 - ACUTE KIDNEY FAILURE, UNSPECIFIED SNOMED Code(s): 99444805 (2) Hypercalcemia Current Visit: Yes Status: Acute Priority: High Code(s): E83.52 - HYPERCALCEMIA SNOMED Code(s): 82260575 (3) Abnormal x-ray of bone Current Visit: Yes Status: Acute Priority: High Code(s): R93.7 - ABNORMAL FINDINGS ON DIAGNOSTIC IMAGING OF PRT MS SYS SNOMED Code(s): 320419724 (4) Anemia Current Visit: Yes Status: Acute Priority: High Code(s): D64.9 - ANEMIA, UNSPECIFIED SNOMED Code(s): 501595443 Plan: The multiple symptoms described above are concerning for myeloma (meets CRAB criteria to the letter!). Hypercalcemia being treated with calcitonin, will increased dose and give small dose of aredia. This therapy is also for the bone findings. NM bone scan ordered to eval entire skeleton Anemia and myeloma work up ordered. Have requested PSA too. Gentle hydration for renal failure. Concerns for marrow related malignancy were discussed with the pt and that there is more work up needed. Pt agreeable to further work up. Attests: I have performed H&P and developed impression and plan of care of patient, discussed with dictator. I agree with dictated note, documented as a scribe.
[2018-08-06 12:09] LABS: Reticulocyte % 2.3 % (0.5-2.0)
[2018-08-06 12:15] LABS: Magnesium 1.4 mg/dL (1.6-2.3); Potassium 3.5 mmol/L (3.5-5.1)
[2018-08-06] MEDS ORDERED: Magnesium Replacement Protocol 1 EACH MISC MISCELLANE PRN (12:45)
[2018-08-06 13:18] LABS: Calcium 11.9 mg/dL (8.4-10.2)
[2018-08-06] MEDS: MAGNESIUM SULFATE-D5W PMX 1 GM in DEXTROSE/WATER 1 100ML.BAG IVPB SCH ×3 (13:29→16:09)
--- NOTE | 2018-08-06 14:04 | P.PN ---
Progress Note - Text Progress Note Date: 08/06/18 The patient's urine remains relatively clear. He remains weak and slightly lethargic. BUN/Cr is improved at 40/1.5. Calcium is lower at 11.9. I am trying to get records from the urologist that saw him one year ago as he probably had cystoscopy and imaging of his kidneys at that time. His catheter will remain in place until his renal function has stabilized.
--- NOTE | 2018-08-06 15:46 | P.PN ---
Subjective 72-year-old pleasant gentleman came in with complaints of fever weakness has been going on for last 2 days along with hematuria patient does have significant prostate problems does use straight catheterization he is unable to do it lately follows up with urology as an outpatient. Patient has been quite weak and able to ambulate found to have renal failure with creatinine of 2.45 do not have his baseline creatinine patient is on some nephrotoxic medications including naproxen which will be held patient will be started on IV fluids, patient was also complaining of pain in the right groin area right suprapubic area and across the bilateral lower abdomen does not have any posterior vertebral angle tenderness. We will obtain ultrasound of the kidney urinary bladder. We will [place] in urine random sodium urine random creatinine and urine eosinophils, holding off on naproxen and chlorthalidone. Patient was also having hematuria 08/05/2018 poor appetite, consumed 10% of breakfast, creatinine 1.91. Renal ultrasound reporting moderate right hydronephrosis, possible wall thickening Hyperal hypokalemic, potassium 2.6, receiving supplements. Evaluated by PT/OT. Limited ambulation with walker. Post ambulation complained of significant exertion and bilateral hip pain. Elevated calcium, 13.9. states patient has lost 30 pounds in 3 weeks. Afebrile, normal WBC. 08/06/2018 Patient is feeling much better today patient to be evaluated for multiple myeloma considering his a lytic lesions and the KUB x-rays along with hypercalcemia which is improving with calcitonin patient has low PTH and low 25 hydroxy vitamin D. Improving calcium with IV fluids. Patient will need serum and urine protein electrophoresis. Discussed with the [facility] regarding these findings. Patient doesn't have any more hematuria. Patient's kidney function is improving. Urine cultures are so far negative Constitutional: Denied any fatigue denied any fever. Cardio vascular: denied any chest pain, palpitations Gastrointestinal denied any nausea vomiting Pulmonary: Denied any shortness of breath cough Neurologic denied any new focal deficits Objective - Vital Signs Vital signs: Vital Signs Temp 98.7 F 08/06/18 14:57 Pulse 57 L 08/06/18 14:57 Resp 18 08/06/18 14:57 BP 122/71 08/06/18 14:57 Pulse Ox 94 L 08/06/18 14:57 Intake & Output 08/05/18 08/06/18 08/06/18 18:59 06:59 18:59 Intake Total 320 Output Total 1200 1350 800 Balance -880 -1350 -800 Weight 79.379 kg Intake: Oral 320 Output: Urine 1200 1350 800 Other: Voiding Method Indwelling Catheter Indwelling Catheter Indwelling Catheter # Voids 1 # Bowel Movements 1 - Exam PHYSICAL EXAMINATION: GENERAL: The patient is alert and oriented x3, not in any acute distress. Well developed, well nourished. HEENT: Pupils are round and equally reacting to light. EOMI. No scleral icterus. No conjunctival pallor. Normocephalic, atraumatic. No pharyngeal erythema. No thyromegaly. CARDIOVASCULAR: S1 and S2 present. No murmurs, rubs, or gallops. PULMONARY: Chest is clear to auscultation, no wheezing or crackles. ABDOMEN: Soft, nontender, nondistended, normoactive bowel sounds. No palpable organomegaly. MUSCULOSKELETAL: No joint swelling or deformity. EXTREMITIES: No cyanosis, clubbing, or pedal edema. NEUROLOGICAL: Gross neurological examination did not reveal any focal deficits. SKIN: No rashes. - Labs CBC & Chem 7: 08/05/18 09:18 08/06/18 11:28 Labs: Abnormal Lab Results - Last 24 Hours (Table) 08/05/18 08/05/18 08/05/18 Range/Units :18 09:18 16:48 Retic Count (0.5-2.0) % Potassium 3.3 L (3.5-5.1) mmol/L BUN (9-20) mg/dL Creatinine (0.66-1.25) mg/dL Calcium (8.4-10.2) mg/dL Magnesium (1.6-2.3) mg/dL Vitamin D 25-Hydroxy 16.2 L (30.0-100.0) ng/mL PTH Intact 4.5 L (14.0-72.0) pg/mL 08/05/18 08/06/18 08/06/18 Range/Units 23:22 11:28 11:28 Retic Count 2.3 H (0.5-2.0) % Potassium 3.1 L (3.5-5.1) mmol/L BUN 40 H (9-20) mg/dL Creatinine 1.50 H (0.66-1.25) mg/dL Calcium 11.9 H (8.4-10.2) mg/dL Magnesium 1.4 L (1.6-2.3) mg/dL Vitamin D 25-Hydroxy (30.0-100.0) ng/mL PTH Intact (14.0-72.0) pg/mL Microbiology - Last 24 Hours (Table) 08/04/18 09:52 Blood Culture - Preliminary Blood No Growth after 48 hours 08/05/18 14:00 Urine Culture - Preliminary Urine,Clean Catch Assessment and Plan Plan: Possible urinary tract infection, a cystitis: Patient was started on Rocephin which will be continued IV fluids will be continued. Urine cultures did not show any significant abnormality -Hematuria: Probably secondary to cystitis -Hypercalcemia with lytic lesions of the bone possibility of multiple myeloma oncology evaluated the patient for work and further workup as per them did continue with calcitonin and IV fluids -Possible acute renal failure: Multifactorial most probably secondary to myeloma proteins, nephrotoxic medications were discontinued including diuretics and naproxen improving at this time. -Hypokalemia potassium will be supplemented -Nuvia hypomagnesemia magnesium will be supplemented -Proteinuria may be secondary to multiple myeloma will need further workup as mentioned -Benign prostatic hypertrophy -Anemia of chronic disease
[2018-08-06 16:38] LABS: Iron Saturation 20.44 (15.00-50.00); Protein, Total 9.2 g/dL (6.2-8.2)
[2018-08-06] MEDS ORDERED: SODIUM CHLORIDE 0.9% 250 ML with PAMIDRONATE 30 MG IV ONE ×2 (18:00)
[2018-08-07] MEDS: FINASTERIDE 5 MG TAB PO SCH (07:56)
[2018-08-07] MEDS: TAMSULOSIN 0.4 MG CAP.ER.24H PO SCH (07:56)
[2018-08-07] MEDS: ATENOLOL 50 MG TAB PO SCH (07:57)
[2018-08-07] MEDS: SODIUM CHLORIDE 0.9% 1,000 ML IV SCH ×3 (08:00→23:48)
[2018-08-07] MEDS: ACETAMINOPHEN TAB 325 MG TAB PO PRN (08:04)
[2018-08-07] MEDS: CALCITONIN INJ 200 UNIT/ML (MDV) VIAL SQ SCH (09:25)
[2018-08-07 10:04] LABS: Calcium 11.5 mg/dL (8.4-10.2); Magnesium 1.5 mg/dL (1.6-2.3); Potassium 3.5 mmol/L (3.5-5.1)
[2018-08-07] MEDS: MAGNESIUM SULFATE-D5W PMX 1 GM in DEXTROSE/WATER 1 100ML.BAG IVPB SCH ×2 (11:15→13:56)
[2018-08-07] MEDS: POTASSIUM CHLORIDE ER 20 MEQ TAB.ER PO SCH ×2 (11:15→13:56)
[2018-08-07 12:40] LABS: Albumin 2.36 g/dL (3.80-4.90); Gamma Globulin 1.98 g/dL (0.70-1.50)
[2018-08-07 12:58] LABS: Basophils % (A) 0 %; Eosinophils # (A) 0.1 k/uL (0-0.7); Eosinophils % (A) 1 %; HCT 24.6 % (39.0-53.0); HGB 8.5 gm/dL (13.0-17.5); Lymphocytes # (A) 1.2 k/uL (1.0-4.8); Lymphocytes % (A) 13 %; MCH 31.6 pg (25.0-35.0); MCHC 34.6 g/dL (31.0-37.0); MCV 91.4 fL (80.0-100.0); Mean Platelet Volume 8.3; Monocytes # (A) 0.3 k/uL (0-1.0); Monocytes % (A) 4 %; Neutrophils # (A) 7.2 k/uL (1.3-7.7); Neutrophils % (A) 81 %; Platelet Count 228 k/uL (150-450); RBC 2.69 m/uL (4.30-5.90); RDW 14.5 % (11.5-15.5); WBC 8.9 k/uL (3.8-10.6)
--- NOTE | 2018-08-07 13:53 | NM ---
EXAMINATION TYPE: NM bone scan whole body DATE OF EXAM: 08/07/2018 COMPARISON: Pelvic radiograph dated 08/05/2018. HISTORY: Abnormal pelvic radiograph's and weight loss Delayed whole-body scanning was performed following the injection of 25.4 mCi Tc 99m MDP. Images acq uired 5.5 hours post injection. FINDINGS: In addition to be normal radiotracer uptake by bone marrow throughout the axial and appendicular skel eton there is focal uptake within the approximately fourth and sixth posterior left ribs and third ri ght rib as well as the costochondral junctions of the mid left and right ribs and lower left rib. Pos terior uptake may be posttraumatic or less likely metastatic and anterior is likely inflammatory. Foc al uptake is also seen at the left sternoclavicular junction. Correlation with left clavicular radiog raphs are is recommended. Symmetric focal uptake is seen within the glenohumeral joints, acromioclavicular joints, elbows, wris ts, carpal metacarpal joints, and sacroiliac joints. Patchy uptake within the metatarsals and spine a re likely degenerative given pronounced arthropathy of the left hemivertebra at L4-L5. No focal photo penic defects to correlate to the lytic lesion seen on the prior radiographs. IMPRESSION: 1. Multifocal uptake within bilateral posterior ribs that could be posttraumatic from acute to subacu te healing fractures or less likely metastatic. Correlate with chest radiograph or CT. 2. Symmetric uptake within multiple joints of the axial and appendicular skeleton from osteoarthritic change. 3. Uptake within the lower lumbar spine also likely relates to degenerative change. 4. No photopenic defects appreciated. Note multiple myeloma is not readily seen on bone scan. CT coul d further assess for lytic lesions or PET scan.
--- NOTE | 2018-08-07 15:42 | P.PN ---
Subjective Progress Note Date: 08/07/18 Principal diagnosis: work up for anemia, ARF, hypercalcemia and MS pain Pt seen today in f/u with multiple family and friends at bedside. Pt feels less "foggy" today in his thinking, he is still profoundly weak, he was able to get to chair but needed help getting back to bed (about 6-8 steps), pain in his back and right leg persists. Denies N,V, QIAN, diarrhea or constipation. Objective - Vital Signs Vital signs: Vital Signs Temp 98.2 F 08/07/18 15:00 Pulse 61 08/07/18 15:00 Resp 16 08/07/18 15:02 BP 135/76 08/07/18 15:00 Pulse Ox 96 08/07/18 15:00 Intake & Output 08/06/18 08/07/18 08/07/18 18:59 06:59 18:59 Intake Total 400 Output Total 800 3600 500 Balance -800 -3200 -500 Weight 79.379 kg Intake: Oral 400 Output: Urine 800 3600 500 Uretheral (Hallman) 1800 Other: Voiding Method Indwelling Catheter Indwelling Catheter Indwelling Catheter # Voids 1 # Bowel Movements 1 - Constitutional General appearance: Present: average body habitus, cooperative, no acute distress - Respiratory Details: respirations even and unlabored - Peripheral edema leg Peripheral Edema: bilateral: None - Integumentary Integumentary: Present: pale - Neurologic Neurologic: Present: CNII-XII intact - Musculoskeletal Musculoskeletal Comment(s): right leg strength is there but due to pain pt won't exert - Psychiatric Psychiatric: Present: A&O x's 3, appropriate affect, intact judgment & insight - Labs CBC & Chem 7: 08/07/18 09:20 08/07/18 09:20 Labs: Abnormal Lab Results - Last 24 Hours (Table) 08/06/18 08/06/18 08/06/18 Range/Units 11:28 11:28 18:15 RBC (4.30-5.90) m/uL Hgb (13.0-17.5) gm/dL Hct (39.0-53.0) % Potassium 3.4 L (3.5-5.1) mmol/L BUN (9-20) mg/dL Creatinine (0.66-1.25) mg/dL Glucose (74-99) mg/dL Calcium (8.4-10.2) mg/dL Magnesium (1.6-2.3) mg/dL Iron 37 L (65-175) ug/dL TIBC 181 L (228-460) ug/dL Ferritin 407.6 H (22.0-322.0) ng/mL Total Protein (PEP) 9.2 H (6.2-8.2) g/dL Albumin (PEP) 2.36 L (3.80-4.90) g/dL Mrkpf-1-Apauuoilr 0.40 L (0.60-1.00) g/dL Beta Globulins 4.22 H (0.60-1.30) g/dL Gamma Globulins 1.98 H (0.70-1.50) g/dL RBC Folate 977 H (280 - 791) ng/mL Free [place] LC, Quant 2.63 H (0.33-1.94) mg/dL 08/07/18 08/07/18 Range/Units 09:20 09:20 RBC 2.69 L (4.30-5.90) m/uL Hgb 8.5 L (13.0-17.5) gm/dL Hct 24.6 L (39.0-53.0) % Potassium (3.5-5.1) mmol/L BUN 26 H (9-20) mg/dL Creatinine 1.47 H (0.66-1.25) mg/dL Glucose 107 H (74-99) mg/dL Calcium 11.5 H (8.4-10.2) mg/dL Magnesium 1.5 L (1.6-2.3) mg/dL Iron (65-175) ug/dL TIBC (228-460) ug/dL Ferritin (22.0-322.0) ng/mL Total Protein (PEP) (6.2-8.2) g/dL Albumin (PEP) (3.80-4.90) g/dL Kfhir-4-Teqvachdy (0.60-1.00) g/dL Beta Globulins (0.60-1.30) g/dL Gamma Globulins (0.70-1.50) g/dL RBC Folate (280 - 791) ng/mL Free [place] LC, Quant (0.33-1.94) mg/dL Microbiology - Last 24 Hours (Table) 08/04/18 09:52 Blood Culture - Preliminary Blood No Growth after 72 hours Assessment and Plan (1) Acute renal failure Narrative/Plan: Slow to improve with hydration. Cont hydration Current Visit: Yes Status: Acute Priority: High Code(s): N17.9 - ACUTE KIDNEY FAILURE, UNSPECIFIED SNOMED Code(s): 87106063 (2) Hypercalcemia Narrative/Plan: Pt did receive a dose of aredia and is getting calcitonin. Still elevated at 11.5 but much improved from admit. Cont hydration and complete calcitonin doses Current Visit: Yes Status: Acute Priority: High Code(s): E83.52 - HYPERCALCEMIA SNOMED Code(s): 35183594 (3) Abnormal x-ray of bone Narrative/Plan: NM bone scan had not yet been performed when pt seen, pending results Current Visit: Yes Status: Acute Priority: High Code(s): R93.7 - ABNORMAL FINDINGS ON DIAGNOSTIC IMAGING OF PRT MS SYS SNOMED Code(s): 280360470 (4) Anemia Narrative/Plan: Hgb stable, no acute intervention today. Lab work up pending when pt seen this AM. At the time of dictation labs returned, reveling an IgA Foss myeloma, 2 M- spikes noted, early peak 3.84 g/dL and late 2.05 g/dL Dr. Bloom will review results with pt and family tomorrow. Will ask nursing to set up family meeting. Current Visit: Yes Status: Acute Priority: High Code(s): D64.9 - ANEMIA, UNSPECIFIED SNOMED Code(s): 918098986 Plan: .
[2018-08-07] MEDS ORDERED: POTASSIUM CHLORIDE ER 20 MEQ TAB.ER PO SCH (16:00)
[2018-08-08 07:25] VITALS: RESP 16
[2018-08-08] MEDS: TAMSULOSIN 0.4 MG CAP.ER.24H PO SCH (07:51)
[2018-08-08] MEDS: ATENOLOL 50 MG TAB PO SCH (07:51)
[2018-08-08] MEDS: FINASTERIDE 5 MG TAB PO SCH (07:52)
[2018-08-08] MEDS: SODIUM CHLORIDE 0.9% 1,000 ML IV SCH ×2 (07:52→15:48)
[2018-08-08] MEDS: CALCITONIN INJ 200 UNIT/ML (MDV) VIAL SQ SCH (08:32)
--- NOTE | 2018-08-08 09:08 | P.PN ---
Subjective Progress Note Date: 08/07/18 Progress note being dictated for Dr. Moss Interval history:72-year-old pleasant gentleman came in with complaints of fever weakness has been going on for last 2 days along with hematuria patient does have significant prostate problems does use straight catheterization he is unable to do it lately follows up with urology as an outpatient. Patient has been quite weak and able to ambulate found to have renal failure with creatinine of 2.45 do not have his baseline creatinine patient is on some nephrotoxic medications including naproxen which will be held patient will be started on IV fluids, patient was also complaining of pain in the right groin area right suprapubic area and across the bilateral lower abdomen does not have any posterior vertebral angle tenderness. We will obtain ultrasound of the kidney urinary bladder. We will Allsop in urine random sodium urine random creatinine and urine eosinophils, holding off on naproxen and chlorthalidone. Patient was also having hematuria 08/05/2018 poor appetite, consumed 10% of breakfast, creatinine 1.91. Renal ultrasound reporting moderate right hydronephrosis, possible wall thickening Hyperal hypokalemic, potassium 2.6, receiving supplements. Evaluated by PT/OT. Limited ambulation with walker. Post ambulation complained of significant exertion and bilateral hip pain. Elevated calcium, 13.9. states patient has lost 30 pounds in 3 weeks. Afebrile, normal WBC. 08/06/2018 Patient is feeling much better today patient to be evaluated for multiple myeloma considering his a lytic lesions and the KUB x-rays along with hypercalcemia which is improving with calcitonin patient has low PTH and low 25 hydroxy vitamin D. Improving calcium with IV fluids. Patient will need serum and urine protein electrophoresis. Discussed with the [facility] regarding these findings. Patient doesn't have any more hematuria. Patient's kidney function is improving. Urine cultures are so far negative Constitutional: Denied any fatigue denied any fever. Cardio vascular: denied any chest pain, palpitations Gastrointestinal denied any nausea vomiting Pulmonary: Denied any shortness of breath cough Neurologic denied any new focal deficits 08/07/2018 bilateral hip, pelvis x-ray reporting multiple lucent lesions involving both femur and pelvic bones. Bone scan in progress. Maintained on IV fluid hydration, calcium lower at 11.5. Renal function improving. Evaluated by urology with recommendations noted; attempting to obtain records from prior urologist. Continues to have significant weakness. Denies chest pain, palpitations, shortness of breath. Denies nausea vomiting or diarrhea. Objective - Vital Signs Vital signs: Vital Signs Temp 98.2 F 08/07/18 15:00 Pulse 61 08/07/18 15:00 Resp 16 08/07/18 15:02 BP 135/76 08/07/18 15:00 Pulse Ox 96 08/07/18 15:00 Intake & Output 08/07/18 08/07/18 08/08/18 06:59 18:59 06:59 Intake Total 400 Output Total 3600 500 Balance -3200 -500 Weight 79.379 kg Intake: Oral 400 Output: Urine 3600 500 Uretheral (Hallman) 1800 Other: Voiding Method Indwelling Catheter Indwelling Catheter Indwelling Catheter - Exam PHYSICAL EXAM: VITAL SIGNS: As above GENERAL: Lying in bed, weak and tired appearing, no acute distress HEENT: Conjunctivae normal. eyes normal. Oral mucosa dry NECK: No JVD. No thyroid enlargement. No LNs CARDIOVASCULAR: S1, S2 muffled. No murmur RESPIRATION: Breath sounds diminished in the bases. No rhonchi or crackles. ABDOMEN: Soft, nontender . No guarding. no masses palpable. Bowel sounds heard. LEGS: No edema. no swelling PSYCHIATRY: Alert and oriented -3, mood and affect normal. NERVOUS SYSTEM: Cranial N 2-12 grossly normal. Moves all 4 limbs. Diffuse weakness No focal deficits. SKIN: No rashes . - Labs CBC & Chem 7: 08/07/18 09:20 08/07/18 18:08 Labs: Abnormal Lab Results - Last 24 Hours (Table) 08/06/18 08/06/18 08/07/18 Range/Units 11:28 11:28 09:20 RBC (4.30-5.90) m/uL Hgb (13.0-17.5) gm/dL Hct (39.0-53.0) % BUN 26 H (9-20) mg/dL Creatinine 1.47 H (0.66-1.25) mg/dL Glucose 107 H (74-99) mg/dL Calcium 11.5 H (8.4-10.2) mg/dL Magnesium 1.5 L (1.6-2.3) mg/dL Albumin (PEP) 2.36 L (3.80-4.90) g/dL Aixxm-1-Plyttmvhj 0.40 L (0.60-1.00) g/dL Beta Globulins 4.22 H (0.60-1.30) g/dL Gamma Globulins 1.98 H (0.70-1.50) g/dL RBC Folate 977 H (280 - 791) ng/mL Free [place] LC, Quant 2.63 H (0.33-1.94) mg/dL 08/07/18 Range/Units 09:20 RBC 2.69 L (4.30-5.90) m/uL Hgb 8.5 L (13.0-17.5) gm/dL Hct 24.6 L (39.0-53.0) % BUN (9-20) mg/dL Creatinine (0.66-1.25) mg/dL Glucose (74-99) mg/dL Calcium (8.4-10.2) mg/dL Magnesium (1.6-2.3) mg/dL Albumin (PEP) (3.80-4.90) g/dL Gnwcx-0-Pxrzqptdp (0.60-1.00) g/dL Beta Globulins (0.60-1.30) g/dL Gamma Globulins (0.70-1.50) g/dL RBC Folate (280 - 791) ng/mL Free [place] LC, Quant (0.33-1.94) mg/dL Microbiology - Last 24 Hours (Table) 08/05/18 14:00 Urine Culture - Preliminary Urine,Clean Catch Coagulase Negative Staph 08/04/18 09:52 Blood Culture - Preliminary Blood No Growth after 72 hours Assessment and Plan Assessment: Possible urinary tract infection, a cystitis: Urine culture, coagulase-negative staph. Antibiotics discontinued. -Hematuria: Probably secondary to cystitis -Possible acute renal failure: Multifactorial, most probably secondary to myeloma proteins, nephrotoxic medications which have been discontinued. -Hypokalemia potassium will be supplemented -Proteinuria, secondary to possible multiple -Benign prostatic hypertrophy -Hypercalcemia with lytic lesions of the bone, possible multiple myeloma, hx of significant weight loss of 30 pounds in 3 weeks. -Moderate right hydronephrosis -Bilateral hip pain, workup in progress. -Anemia of chronic disease -Hypomagnesemia Plan: Continue current medication regime ,monitoring and symptomatic treatment. Bone scan results pending Continue IV fluids.Potassium and magnesium supplementation in progress with repeat potassium check at 1600. Evaluated by physical therapy with subacute rehab recommended at discharge. Close monitoring of electrolytes, renal function with repeat labs ordered for a.m. family meeting been arranged with Dr. brito, oncology to discuss myeloma workup/ bone scan. prognosis guarded given multiple complex medical issues. The impression and plan of care has been dictated as directed. : I performed a history and examination of this patient, discussed the same with the dictator. I agree with the dictator's note ,documented as a scribe. Any additional findings or plans will be noted.
[2018-08-08 10:17] LABS: Methylmalonic Acid 0.19 umol/L (<0.40)
[2018-08-08 10:28] LABS: Basophils % (A) 0 %; Eosinophils % (A) 1 %; HCT 24.5 % (39.0-53.0); HGB 8.2 gm/dL (13.0-17.5); Lymphocytes # (A) 0.8 k/uL (1.0-4.8); Lymphocytes % (A) 15 %; MCH 31.4 pg (25.0-35.0); MCHC 33.6 g/dL (31.0-37.0); MCV 93.4 fL (80.0-100.0); Mean Platelet Volume 7.9; Monocytes # (A) 0.2 k/uL (0-1.0); Monocytes % (A) 4 %; Neutrophils # (A) 4.2 k/uL (1.3-7.7); Neutrophils % (A) 79 %; Platelet Count 203 k/uL (150-450); RBC 2.63 m/uL (4.30-5.90); RDW 14.6 % (11.5-15.5); WBC 5.3 k/uL (3.8-10.6)
[2018-08-08 10:57] LABS: Calcium 9.8 mg/dL (8.4-10.2); Magnesium 1.4 mg/dL (1.6-2.3)
[2018-08-08] MEDS ORDERED: Magnesium Replacement Protocol 1 EACH MISC MISCELLANE PRN (11:43)
[2018-08-08] MEDS: MAGNESIUM SULFATE-D5W PMX 1 GM in DEXTROSE/WATER 1 100ML.BAG IVPB SCH ×3 (12:29→15:48)
[2018-08-08 15:06] VITALS: BP 128/72; PULSE 62; TEMP 98.7
--- NOTE | 2018-08-08 16:06 | P.DS ---
Providers Date of admission: 08/04/18 13:54 Expected date of discharge: 08/08/18 Attending physician: Crista Moss Consults: 08/04/18 14:47 Consult Physician Routine Consulting Provider: Kleber Villasenor Consult Reason/Comments: Cystitis Do you want consulting provider notified?: Yes 08/05/18 14:39 Consult Physician Routine Consulting Provider: Emiliano Bloom Consult Reason/Comments: hypercalcemia, #30 weight loss/3 wks Do you want consulting provider notified?: Yes Primary care physician: [facility] Course: Final Diagnoses: Possible urinary tract infection, a cystitis: Urine culture, coagulase-negative staph. Antibiotics discontinued. -Hematuria: Probably secondary to cystitis -Possible acute renal failure: Multifactorial, most probably secondary to myeloma proteins, nephrotoxic medications which have been discontinued. -Hypokalemia potassium will be supplemented -Proteinuria, secondary to possible multiple -Benign prostatic hypertrophy -Hypercalcemia with lytic lesions of the bone, possible multiple myeloma, hx of significant weight loss of 30 pounds in 3 weeks. -Moderate right hydronephrosis -Bilateral hip pain, workup in progress. -Anemia of chronic disease -Hypomagnesemia Hospital course:72-year-old pleasant gentleman came in with complaints of fever weakness has been going on for last 2 days along with hematuria patient does have significant prostate problems does use straight catheterization he is unable to do it lately follows up with urology as an outpatient. Patient has been quite weak and able to ambulate found to have renal failure with creatinine of 2.45 do not have his baseline creatinine patient is on some nephrotoxic medications including naproxen which will be held patient will be started on IV fluids, patient was also complaining of pain in the right groin area right suprapubic area and across the bilateral lower abdomen does not have any posterior vertebral angle tenderness. We will obtain ultrasound of the kidney urinary bladder. We will Allsop in urine random sodium urine random creatinine and urine eosinophils, holding off on naproxen and chlorthalidone. Patient was also having hematuria 08/05/2018 poor appetite, consumed 10% of breakfast, creatinine 1.91. Renal ultrasound reporting moderate right hydronephrosis, possible wall thickening Hyperal hypokalemic, potassium 2.6, receiving supplements. Evaluated by PT/OT. Limited ambulation with walker. Post ambulation complained of significant exertion and bilateral hip pain. Elevated calcium, 13.9. states patient has lost 30 pounds in 3 weeks. Afebrile, normal WBC. 08/06/2018 Patient is feeling much better today patient to be evaluated for multiple myeloma considering his a lytic lesions and the KUB x-rays along with hypercalcemia which is improving with calcitonin patient has low PTH and low 25 hydroxy vitamin D. Improving calcium with IV fluids. Patient will need serum and urine protein electrophoresis. Discussed with the [facility] regarding these findings. Patient doesn't have any more hematuria. Patient's kidney function is improving. Urine cultures are so far negative Constitutional: Denied any fatigue denied any fever. Cardio vascular: denied any chest pain, palpitations Gastrointestinal denied any nausea vomiting Pulmonary: Denied any shortness of breath cough Neurologic denied any new focal deficits 08/07/2018 bilateral hip, pelvis x-ray reporting multiple lucent lesions involving both femur and pelvic bones. Bone scan in progress. Maintained on IV fluid hydration, calcium lower at 11.5. Renal function improving. Evaluated by urology with recommendations noted; attempting to obtain records from prior urologist. Continues to have significant weakness. Denies chest pain, palpitations, shortness of breath. Denies nausea vomiting or diarrhea. Cleared by all consults for discharge. Patient is being discharged to [facility] rehab once family meets with Dr. bloom, oncology to discuss myeloma workup/bone scan results. Patient is being discharged in a stable condition with guarded prognosis. EXAM: GENERAL: Lying in bed, weak and tired appearing, no acute distress CARDIOVASCULAR: S1, S2 muffled. No murmur RESPIRATION: Breath sounds diminished in the bases. No rhonchi or crackles. ABDOMEN: Soft, nontender . No guarding. no masses palpable. Bowel sounds heard. PSYCHIATRY: Alert and oriented -3, mood and affect normal. NERVOUS SYSTEM: Cranial N 2-12 grossly normal. Moves all 4 limbs. Diffuse weakness No focal deficits. The impression and plan of care has been dictated as directed. : I performed a history and examination of this patient, discussed the same with the dictator. I agree with the dictator's note ,documented as a scribe. Any additional findings or plans will be noted. Time taken: 35 minutes Patient Condition at Discharge: Stable Plan - Discharge Summary Discharge Rx Participant: No New Discharge Prescriptions: New Acetaminophen Tab [Tylenol] 650 mg PO Q6HR PRN tab PRN Reason: Mild Pain Or Fever > 100.5 Atenolol [Tenormin] 50 mg PO DAILY tab Continue Tamsulosin [Flomax] 0.8 mg PO DAILY Methocarbamol [Robaxin] 750 mg PO QID PRN PRN Reason: Pain Finasteride [Proscar] 5 mg PO DAILY Discontinued Oxybutynin Chloride [Ditropan] 5 mg PO BID Atenolol/Chlorthalidone [Atenolol-Chlorthalidone 50-25] 1 tab PO DAILY Acetaminophen Tab [Tylenol Tab] 500 mg PO BID PRN PRN Reason: Pain Naproxen 500 mg PO BID PRN PRN Reason: Pain Discharge Medication List Finasteride [Proscar] 5 mg PO DAILY 08/04/18 [History] Methocarbamol [Robaxin] 750 mg PO QID PRN 08/04/18 [History] Tamsulosin [Flomax] 0.8 mg PO DAILY 08/04/18 [History] Acetaminophen Tab [Tylenol] 650 mg PO Q6HR PRN tab 08/08/18 [Rx] Atenolol [Tenormin] 50 mg PO DAILY tab 08/08/18 [Rx] Follow up Appointment(s)/Referral(s): [facility],Clinic [Primary Care Provider] - 1-2 days Activity/Diet/Wound Care/Special Instructions: Patient will DC home with reyes catheter per Dr. Villasenor, follow up with urologist one week after leaving ECF.
[2018-08-08] MEDS ORDERED: ZOLEDRONIC ACID 4 MG in SODIUM CHLORIDE 0.9% 100 ML IV ONE (16:30)
--- NOTE | 2018-08-08 23:15 | P.PN ---
Subjective Progress Note Date: 08/08/18 the patient feels stronger overall. Mental status is markedly improved. he continues to complain of pain in bilateral hips, more on the right than the left. generalized weakness persists. Objective - Vital Signs Vital signs: Vital Signs Temp 98.7 F 08/08/18 15:00 Pulse 62 08/08/18 15:00 Resp 16 08/08/18 15:00 BP 128/72 08/08/18 15:00 Pulse Ox 95 08/08/18 15:00 Intake & Output 08/08/18 08/08/18 08/09/18 06:59 18:59 06:59 Intake Total 300 Output Total 800 Balance -500 Intake: Oral 300 Output: Urine 800 Uretheral (Hallman) 400 Other: Voiding Method Indwelling Catheter Indwelling Catheter - Constitutional General appearance: Present: no acute distress - EENT Eyes: Present: EOMI ENT: Present: hearing grossly normal, normal oropharynx - Respiratory Respiratory: bilateral: CTA - Cardiovascular Rhythm: regular Heart sounds: normal: S1, S2 - Gastrointestinal General gastrointestinal: Present: normal bowel sounds, soft - Integumentary Integumentary: Present: normal - Neurologic Neurologic: Present: CNII-XII intact - Musculoskeletal Musculoskeletal: Present: generalized weakness - Psychiatric Psychiatric: Present: A&O x's 3, appropriate affect - Labs CBC & Chem 7: 08/08/18 09:58 08/08/18 09:58 Labs: Abnormal Lab Results - Last 24 Hours (Table) 08/08/18 08/08/18 Range/Units 09:58 09:58 RBC 2.63 L (4.30-5.90) m/uL Hgb 8.2 L (13.0-17.5) gm/dL Hct 24.5 L (39.0-53.0) % Lymphocytes # 0.8 L (1.0-4.8) k/uL BUN 21 H (9-20) mg/dL Creatinine 1.43 H (0.66-1.25) mg/dL Glucose 101 H (74-99) mg/dL Magnesium 1.4 L (1.6-2.3) mg/dL Microbiology - Last 24 Hours (Table) 08/04/18 09:52 Blood Culture - Preliminary Blood No Growth after 96 hours Assessment and Plan (1) Multiple myeloma Narrative/Plan: the patient's protein electrophoresis shows very significant IgA kappa monoclonal proteins, with 2 M spikes, measuring in the 2-3 g range. total monoclonal protein is in the 5-6 g/deciliter range. this finding, along with the presence of bone lesions, and hypercalcemia, is highly suspicious for multiple myeloma. The implications were discussed in detail with the patient and his family who are at the bedside. The pathophysiology was also discussed. They were advised that the patient will need a bone marrow aspiration biopsy to establish a tissue diagnosis. The procedure was discussed in detail. This will be set up as an outpatient, likely next week. The office will contact his ECF to set up the same. All their questions were answered to the best of my ability. He is willing to proceed. Status: Acute Code(s): C90.00 - MULTIPLE MYELOMA NOT HAVING ACHIEVED REMISSION SNOMED Code(s): 868559697 (2) Hypercalcemia Narrative/Plan: this appears to be malignant, in this clinical setting. This has improved with hydration and calcitonin. As creatinine is better, the patient will be given a dose of Zometa prior to discharge Status: Acute Priority: High Code(s): E83.52 - HYPERCALCEMIA SNOMED Code(s ): 78345013 (3) Dehydration Narrative/Plan: most likely secondary to hypercalcemia. This has improved with hydration, with resultant improvement in kidney function. Status: Acute Code(s): E86.0 - DEHYDRATION SNOMED Code(s): 04614850 Plan: the case was discussed in detail with nursing, as well as the ECF liaisons regarding further plans.
== END 2018-08-08 17:26 | DRG 690 ==
LOC: EC 08:59 → 4MS4W 13:54
PROVIDERS: ADMIT Internal Medicine; ATTEND Internal Medicine
DX: N13.6 Pyonephrosis (principal); C90.00 Multiple myeloma not having achieved remission; N17.0 Acute kidney failure with tubular necrosis; E86.0 Dehydration; E83.52 Hypercalcemia; E83.42 Hypomagnesemia; D63.8 Anemia in other chronic diseases classified elsewhere; E87.6 Hypokalemia; N40.1 Benign prostatic hyperplasia with lower urinary tract symptoms; N39.41 Urge incontinence; I10 Essential (primary) hypertension; Z79.899 Other long term (current) drug therapy; Z96.653 Presence of artificial knee joint, bilateral; Z87.891 Personal history of nicotine dependence; Z87.440 Personal history of urinary (tract) infections; Z82.5 Family history of asthma and other chronic lower respiratory diseases; Z80.0 Family history of malignant neoplasm of digestive organs
CPT/HCPCS: 36415; 51702; 71046; 73521; 74018; 76770; 78306; 80048; 80053; 81001; 82150; 82306; 82550; 82553; 82570; 82728; 82747; 83540; 83550; 83605; 83690; 83735; 83883; 83921; 83970; 84132; 84153; 84165; 84300; 84484; 85025; 85027; 85045; 86334; 87040; 87077; 87086; 87186; 87205; 93005; 96361; 96365; 99285